=== PATIENT | male | born 1985 | race Caucasian/White ===

== ENCOUNTER 2024-09-19 10:01 | Emergency (ER) | payer MEDICAID, SELFPAY ==
[2024-09-19] VITALS (9 sets, daily range): BP systolic 115–143; BP diastolic 65–100; PULSE 62–87; RESP 16–18; TEMP 36.7; O2SAT 97–100; BMI 23.7
--- NOTE | 2024-09-19 10:41 | CT_ITS ---
FINAL REPORT TECHNIQUE: Axial CT images were performed through the head. Coronal reformatted images were submitted. This study was performed with techniques to keep radiation doses as low as reasonably achievable (ALARA). Individualized dose reduction techniques using automated exposure control or adjustment of mA and/or kV according to the patient's size were employed. CLINICAL HISTORY: syncope COMPARISON: None FINDINGS: The ventricles are normal in size. There is no evidence of hemorrhage. There is no mass or edema identified. There is no abnormal extra-axial fluid seen. Retention cyst or polyp is noted in the inferior right maxillary sinus. IMPRESSION: No acute intracranial process. Reviewed, Interpreted and Dictated by Pacheco Martin MD Transcribed by Nicky Moeller Authenticated and [facility]
--- NOTE | 2024-09-19 10:41 | CT_ITS ---
FINAL REPORT TECHNIQUE: thin section axial CT with and without IV contrast supplemented with multiplanar 3-D reconstruction of the head. This study was performed with techniques to keep radiation doses as low as reasonably achievable, (ALARA)individualized dose reduction techniques using automated exposure control or adjustment of mA and/or kV according to the patient's size were employed. CLINICAL HISTORY: syncope COMPARISON: None FINDINGS: CTA: The cranial circulation is unremarkable. There is no significant stenosis, aneurysm or occlusion. IMPRESSION: No acute process. Reviewed, Interpreted and Dictated by Pacheco Martin MD Transcribed by Nicky Moeller Authenticated and [facility]
--- NOTE | 2024-09-19 10:41 | CT_ITS ---
FINAL REPORT TECHNIQUE: The patient was injected with IV contrast. Axial images were obtained through the chest in a PE protocol. 3-D reconstruction images were also performed. Individualized dose reduction techniques using automated exposure control or adjustment of the MA and/or KV according to patient's size were employed. CLINICAL HISTORY: syncope COMPARISON: None FINDINGS: Mediastinal vasculature is adequately opacified. No pulmonary artery filling defects are identified to suggest PE. There is no aortic dissection. There is no axillary adenopathy. There is no hilar or mediastinal adenopathy. The heart size is normal. There is no pericardial or pleural effusion. Limited images of the upper abdomen are unremarkable. No suspicious infiltrate or nodule is identified. Dependent edema is noted at the lung bases. IMPRESSION: No pulmonary embolus or dissection. Reviewed, Interpreted and Dictated by Pacheco Martin MD Transcribed by Nicky Moeller Authenticated and [facility]
--- NOTE | 2024-09-19 10:41 | CT_ITS ---
FINAL REPORT TECHNIQUE: NASCET technique utilized for stenosis evaluation. CLINICAL HISTORY: syncope COMPARISON: None FINDINGS: RIGHT CAROTID: No significant stenosis is seen of the cervical common or internal carotid artery. LEFT CAROTID: No significant stenosis seen of the cervical common or internal carotid artery. VERTEBRALS: The vertebral arteries are symmetric and patent. No significant stenosis is present. IMPRESSION: No significant arterial abnormality. Reviewed, Interpreted and Dictated by Pacheco Martin MD Transcribed by Nicky Moeller Authenticated and [facility]
--- NOTE | 2024-09-19 10:43 | PC.NURSE ---
FS 109
--- NOTE | 2024-09-19 10:46 | ED_ITS ---
Discharge Plan Disposition Patient Disposition: Home, Self-Care Condition: Good Referrals Follow up/Referrals: Ceferino Metzger MD [Staff Physician] - See instructions Provider,MD Bradley [Primary Care Provider] - See instructions Danyel Sylvester MD [Staff Physician] - See instructions Activity Restrictions/Add. Instructions Additional Instructions/Restrictions: You were evaluated in the emergency department today. At this time, your labs and workup are reassuring. Please wear your Holter monitor as instructed. Follow-up with cardiology for results of this. I also recommend close follow-up with your primary care provider. Make sure you eat a well-balanced diet. Return to the emergency department for new or worsening symptoms. Clinical Impressions Clinical Impression: Syncope Stand Alone Forms Stand Alone Forms: Work/School Release Instructions Patient Instructions: DI for Syncope in Adults (Fainting) Print Language Print Language: Slovenian Discharge ED Provider: Gosia Villanueva General Adult HPI General Chief complaint: Seizure Stated complaint: poss seizure Time Seen by Provider: 09/19/24 10:30 Mode of Arrival: Wheelchair Source of Information: Patient Limitations: No Limitations Description of Symptoms (Recalled from ER Triage Doc. by RN): pt presents to ED with possible seziure activity. pt was ex at [facility]. ortho staff state that pt was sitting in chair playing with son, began to start shaking, profuse sweating. pt reports he last remembers playing with his son, and then waking up to people staring at him asking him questions. no hx of seizures. History of Present Illness HPI narrative: This patient is a 38-year-old male who denies significant past medical history presenting to the emergency department for evaluation with concern for syncope. Patient reports that he was at orthopedics appointment with his child and ex playing with the child when he lost consciousness. According to the patient's ex-, he was completely with it, talking, when suddenly he tossed his head back and began snoring. This lasted maybe 45 seconds. She notes that he was very diaphoretic. She denies noting any convulsions such as seizure, and she states that he came to very quickly afterward with no postictal period. He denies any tongue biting, loss of bladder or bowel function, or other concerns. He states that he had been feeling a little bit lightheaded this morning, which he attributed to not eating. Right now, he states he feels hungry but otherwise feels fine. No recent illnesses. He denies any history of alcohol or substance use. No history of seizure cardiac issues. He has had no headache, vision changes, numbness, tingling, unilateral weakness, chest pain, shortness of breath, abdominal pain, back pain, or other concerns. Related Data Allergies Allergy/AdvReac Type Severity Reaction Status Date / Time No Known Allergies Allergy Verified 09/19/24 10:26 [facility] Disclaimer: The information contained in this section may have been updated after the patient was seen, as this information can be updated by other users. Social History Smoking Status: Current every day smoker alcohol intake: never current occupational status: employed Travel in the last 8 weeks: None ROS Obtained: Yes All systems reviewed & no additional complaints except as documented Physical Exam General General appearance: alert and in no apparent distress Head Head exam: atraumatic and normocephalic Eye Eye exam: Present normal appearance, PERRL and EOMI ENT ENT exam: Present normal exam, normal oropharynx, mucous membranes moist and normal external ear exam Neck Neck exam: Present normal inspection, full ROM and trachea midline; Absent tenderness Chest Chest inspection: Present normal inspection and symmetric chest wall rise; Absent tenderness Respiratory Respiratory exam: Present normal lung sounds bilaterally; Absent respiratory distress, wheezes, stridor or accessory muscle use Cardiovascular Cardiovascular exam: Present regular rate and normal rhythm Abdominal Exam Abdominal exam: Present soft; Absent distention, tenderness or guarding Extremities Exam Extremities exam: Present normal inspection, full ROM and normal capillary refill; Absent tenderness or edema Back Exam Back exam: Present normal inspection and full ROM; Absent tenderness Neurological Exam Neurological exam: Present alert, oriented X3, CN II-XII intact and normal gait; Absent motor sensory deficit Psychiatric Psychiatric exam: Present normal affect and normal mood Skin Skin exam: Present warm and dry Medical Decision Making Medical Records Medical records reviewed: Yes I reviewed the patient's medical records. Screening: Per USPSTF and CDC recommendations, given the prevalence of disease in our region, it is our hospital?s policy to screen for HIV and viral Hepatitis for all patients aged 18 and over and those with ongoing risk factors. Rd Inquiry Pt receiving controlled substance: No Vital Signs: 09/19/24 10:02 09/19/24 10:30 09/19/24 11:10 Temperature 98.1 F Temperature Source Oral Pulse Rate 62 81 Pulse Rate [Left Radial] 65 Pulse Rate [Orthostatic Lying] Pulse Rate [Orthostatic Sitting] Pulse Rate [Orthostatic Standing] Respiratory Rate 16 Blood Pressure 140/94 H 138/89 Blood Pressure [Orthostatic Lying] Blood Pressure [Orthostatic Sitting] Blood Pressure [Orthostatic Standing] Blood Pressure [Right Arm] 135/100 H Blood Pressure Mean Blood Pressure Mean [Right Arm] 111 02 Sat by Pulse Oximetry 100 100 99 Oxygen Delivery Method Room Air Room Air Room Air 09/19/24 11:11 09/19/24 11:13 09/19/24 11:14 Temperature Temperature Source Pulse Rate 69 81 72 Pulse Rate [Left Radial] Pulse Rate [Orthostatic Lying] Pulse Rate [Orthostatic Sitting] Pulse Rate [Orthostatic Standing] Respiratory Rate Blood Pressure 143/95 H 124/74 Blood Pressure [Orthostatic Lying] Blood Pressure [Orthostatic Sitting] Blood Pressure [Orthostatic Standing] Blood Pressure [Right Arm] Blood Pressure Mean Blood Pressure Mean [Right Arm] 02 Sat by Pulse Oximetry 98 97 98 Oxygen Delivery Method Room Air 09/19/24 11:15 09/19/24 11:31 09/19/24 12:40 Temperature 98.1 F Temperature Source Pulse Rate 87 Pulse Rate [Left Radial] Pulse Rate [Orthostatic Lying] 68 Pulse Rate [Orthostatic Sitting] 73 Pulse Rate [Orthostatic Standing] 75 Respiratory Rate 18 Blood Pressure 115/69 115/65 Blood Pressure [Orthostatic Lying] 138/89 Blood Pressure [Orthostatic Sitting] 143/95 H Blood Pressure [Orthostatic Standing] 124/74 Blood Pressure [Right Arm] Blood Pressure Mean 84 Blood Pressure Mean [Right Arm] 02 Sat by Pulse Oximetry Oxygen Delivery Method Room Air Lab Data Lab results reviewed: Yes I reviewed the patient's lab results. Lab Results 09/19/24 10:14: WBC 10.2, RBC 5.21, Hgb 15.9, Hct 47.0, MCV 90.2, MCH 30.5, MCHC 33.8, RDW 12.4, Plt Count 298, MPV 9.6, Neut % (Auto) 40.7, Lymph % (Auto) 46.4, [place] % (Auto) 8.8, Eos % (Auto) 3.0, Baso % (Auto) 0.9, Neut # (Auto) 4.2, Lymph # (Auto) 4.7 H, Troup # (Auto) 0.9, Eos # (Auto) 0.3, Baso # (Auto) 0.1, Sodium 138, Potassium 4.9, Chloride 103, Carbon Dioxide 28, Anion Gap 11.9, BUN 16, Creatinine 0.90, Estimated Creat Clear 125, Estimated GFR 94, Est GFR ( Amer) 114, Glucose 123 H, Calcium 9.1, Magnesium 2.0, Total Bilirubin 0.4, AST 32, ALT 22, Alkaline Phosphatase 72, Troponin I < 0.01, Total Protein 7.3, Albumin 4.7, Globulin 2.6, Albumin/Globulin Ratio 1.8, TSH 1.23, Thyroxine (T4) 8.8, Plasma/Serum Alcohol < 10 09/19/24 11:35: Urine Color Yellow, Urine Appearance Clear, Urine pH 7.0, Ur Specific Fosters 1.010, Urine Protein Negative, Urine Glucose (UA) Negative, Urine Ketones Negative, Urine Blood Negative, Urine Nitrate Negative, Urine Bilirubin Negative, Urine Urobilinogen 0.2, Ur Leukocyte Esterase Negative, Urine RBC None, Urine WBC None, Ur Squamous Epith Cells None, Urine Bacteria Trace, Urine Opiates Screen Negative, Urine Methadone Screen Negative, Ur Barbituates Screen Negative, Ur Phencyclidine Scrn Negative, Ur Amphetamines Screen Negative, U Benzodiazepines Scrn Negative, Urine Cocaine Screen Negative, U Marijuana (THC) Screen Positive H 09/19/24 10:14 09/19/24 10:14 Orders (Tests/Meds): ED MEDICATIONS Discontinued Medications Generic Name Dose Route Start Last Admin Trade Name Vinod PRN Reason Stop Dose Admin Iopamidol 165 ml 09/19/24 10:57 09/19/24 10:59 Iopamidol-370 (76%);100ml Bottle IV 09/19/24 10:58 165 ml ONCE ONE Administration Sodium Chloride 10 ml 09/19/24 10:57 09/19/24 10:59 Sodium Chloride 0.9% 10ml Syr (Rad Only) IV 09/19/24 10:58 10 ml ONCE ONE Administration Sodium Chloride 50 ml 09/19/24 10:57 09/19/24 10:59 0.9 % Sodium Chloride 50 Ml Vial IV 09/19/24 10:58 50 ml ONCE ONE Administration ORDERS Category Date Time Status CT angio chest PE protocol Stat Cat Scan 09/19/24 10:[address] angio head Stat Cat Scan 09/19/24 10:[address] angio neck Stat Cat Scan 09/19/24 10:[address] head/brain wo con Stat Cat Scan 09/19/24 10:41 Completed CBC w/Auto Diff [Complete Blood Count Auto Diff] Stat Lab 09/19/24 10:14 Completed CMP [Comprehensive Metabolic Panel] Stat Lab 09/19/24 10:14 Completed Ethyl Alcohol Stat Lab 09/19/24 10:14 Completed MAG [Magnesium] Stat Lab 09/19/24 10:14 Completed T4 (Thyroxine) Stat Lab 09/19/24 10:14 Completed TSH [Thyroid Stimulating Hormone] Stat Lab 09/19/24 10:14 Completed Trop I [Troponin I] Stat Lab 09/19/24 10:14 Completed UA [Urinalysis and Microscopic] Stat Lab 09/19/24 11:35 Completed UDS [Drug Screen,Urine] Stat Lab 09/19/24 11:35 Completed ECG holter initial pfn Stat Y 09/19/24 12:07 Completed ECG Data Tracing #1: I reviewed this ECG and interpreted as documented below: Normal sinus rhythm with a ventricular of [address] changes concerning for ischemia. Normal axis and intervals. ECG initial impression date: 09/19/24 ECG initial impression time: 10:58 Medical Decision Narrative: In summary, this patient is a 38-year-old male presenting to the Emergency Department for evaluation of sudden loss of consciousness. Differential diagnoses considered include but are not limited to syncope, electrolyte derangement, dysrhythmia, PE, CVA, intracranial vascular abnormality, ACS, seizure. Ruling out the most morbid conditions drove assessment. On exam, the patient is very well-appearing and denies any physical concerns or complaints at this time. Blood glucose normal upon arrival. Based on history and explanation of symptoms, I doubt seizure and suspect this was more likely a syncopal episode. He has no significant cardiac risk factors noted, no history of drug or alcohol abuse. No headache or neurologic symptoms, and he is completely neurologically intact on exam. Vitals are normal on cardiac telemetry. Workup included lab evaluation to evaluate for metabolic/cardiac etiologies as well as CT head, CT angiogram head and neck, and CT angiogram PE protocol. Given patient is asymptomatic now, no interventions given at this time. I independently interpreted CT scans prior to the radiologist read and noted no acute intracranial bleed or space occupying lesions. No PE. Please see their read for final interpretation. They noted no acute findings on scan. Labs were obtained that demonstrated reassuring CBC, reassuring chemistry, negative troponin, urinalysis this reassuring with a section of UDS positive for THC.. On multiple subsequent reassessments, the patient is resting comfortably with no concerns or complaints and is neurologically intact with reassuring vitals on cardiac telemetry. No new symptoms developed. Overall, I feel this likely was not a seizure, I feel it was likely syncope. Given this, I did order a Holter monitor for the patient to wear and advise that he follow-up with cardiology for interpretation of this. He has breast understanding and agreement. This was provided. I did this because it is concerning to me that he had syncope while sitting mid conversation with no obvious notable inciting factors. Overall, I feel the patient is appropriate for discharge home with strict return precautions and instructions for close follow-up. Patient was discharged after all questions were answered. Critical Care Critical Care Time Critical Care Time: No
--- NOTE | 2024-09-19 10:53 | ECG_ITS ---
APPROVED REPORT Exam: Resting ECG HR:66 bpm ECG Measurements Heart Rate 66 AXES HI 202 P 80 QRSd 97 QRS 67 QT 391 T 67 QTc 404 Conclusion SINUS RHYTHM NORMAL ECG Electronically signed by : GWENDOLYN SALAZAR, 09/19/2024 16:00:40
[2024-09-19 10:58] LABS: Basophils # 0.1 K/mm3 (0-0.2); Basophils % 0.9 % (0.1-2.0); Eosinophils # 0.3 K/mm3 (0.0-0.4); Hemoglobin 15.9 g/dL (14.1-18.0); Lymphocytes # 4.7 K/mm3 (0.7-4.5); Lymphocytes % 46.4 % (10-50); Mean Corpuscular HGB Conc 33.8 g/dL (31.8-35.4); Mean Corpuscular Hemoglobin 30.5 pg (27.0-31.2); Mean Corpuscular Volume 90.2 fl (80-94); Mean Platelet Volume 9.6 fl (7.4-10.4); Monocytes # 0.9 K/mm3 (0.1-1.0); Monocytes % 8.8 % (1.7-9.3); Neutrophils # 4.2 K/mm3 (1.8-7.8); Neutrophils % 40.7 % (37.0-80.0); Platelet Count 298 K/mm3 (142-424); Red Blood Count 5.21 M/mm3 (4.60-6.20); Red Cell Distribution Width 12.4 % (11.5-17.5); White Blood Count 10.2 K/mm3 (4.8-10.8)
[2024-09-19] MEDS: 0.9 % SODIUM CHLORIDE 50 ML VIAL IV (10:59)
[2024-09-19] MEDS: SODIUM CHLORIDE 0.9% 10ML SYR (RAD ONLY) 10 ML IV (10:59)
[2024-09-19] MEDS: IOPAMIDOL-370 (76%);100ML BOTTLE 165 ML IV (10:59)
[2024-09-19 11:03] LABS: Alanine Aminotransferase 22 U/L (12-78); Albumin Level 4.7 g/dl (3.5-5.0); Albumin/Globulin Ratio 1.8 (1.1-1.8); Alkaline Phosphatase 72 U/L (38-126); Anion Gap 11.9 mEq/L (5-15); Aspartate Amino Transferase 32 U/L (17-59); Bilirubin,Total 0.4 mg/dl (0.2-1.3); Blood Urea Nitrogen 16 mg/dl (9-20); Calcium 9.1 mg/dl (8.4-10.2); Carbon Dioxide 28 mmol/L (22.0-30.0); Chloride 103 mmol/L (98-107); Creatinine Clearance Estimated 125 mL/min (50-200); Estimated Glomerular Filt Rate 94 ml/min (>60); GFR (African American) 114 ML/MIN (>60); Globulin 2.6 g/dL (1.3-3.2); Glucose 123 mg/dl (74-100); Potassium 4.9 mmoL/L (3.5-5.1); Sodium 138 mmol/L (136-145); Total Protein,Serum 7.3 g/dl (6.3-8.2)
[2024-09-19 11:20] LABS: T4 (Thyroxine) 8.8 ug/dl (5.53-11.0)
[2024-09-19 11:26] LABS: Troponin I < 0.01 ng/ml (0.00-0.034)
[2024-09-19 11:33] LABS: Thyroid Stimulating Hormone 1.23 uIU/mL (0.465-4.68)
[2024-09-19 11:45] LABS: Microscopic, Urine URINE MICROSCOPIC (MICROSCOPIC)
[2024-09-19 11:51] LABS: Appearance,Urine CLEAR (Clear); Bilirubin,Urine Negative (Negative); Blood, Urine Negative (Negative); Color,Urine YELLOW (Yellow); Glucose,Urine (UA) Negative (Negative); Ketones,Urine Negative (Negative); Leukocyte Esterase,Urine Negative (Negative); Nitrate,Urine Negative (Negative); Protein,Urine Negative (Negative); Urobilinogen,Urine 0.2 EU/dl (0.2)
[2024-09-19 11:55] LABS: Ethyl Alcohol < 10 mg/dl (0-10)
[2024-09-19 12:00] LABS: Barbiturates Screen,Urine Negative ng/ml (<200)
[2024-09-19 12:01] LABS: Benzodiazepines Screen,Urine Negative ng/ml (<200)
[2024-09-19 12:02] LABS: Amphetamine/Metha Screen,Urine Negative ng/ml (<1000); Methadone Screen,Urine Negative ng/ml (<300)
[2024-09-19 12:03] LABS: Cannabinoid Screen,Urine Positive ng/ml (<50)
[2024-09-19 12:04] LABS: Cocaine Screen,Urine Negative ng/ml (<300); Opiate Screen,Urine Negative ng/ml (<300)
[2024-09-19 12:05] LABS: Phencyclidine Screen,Urine Negative ng/ml (<25)
--- NOTE | 2024-09-19 12:07 | PC.NURSE ---
RESPIRATORY NOTIFIED OF HOLTER MONITOR ORDER
--- NOTE | 2024-09-19 12:32 | PC.NURSE ---
DR SALAZAR AT BEDSIDE TO UPDATE PT AND FAMILY
[2024-09-19 12:40] LABS: Bacteria,Urine Trace /lpf
== END 2024-09-19 12:41 | disposition home or self-care (01) ==
PROVIDERS: Emergency Provider Emergency Medicine
DX: R55 Syncope and collapse (principal); R56.9 Unspecified convulsions; R61 Generalized hyperhidrosis; R42 Dizziness and giddiness
CPT/HCPCS: 70450; 70496; 70498; 71275; 80053; 80307; 80320; 81001; 83735; 84436; 84443; 84484; 85025; 93005; 93225; 93227; 99285; G0480; Q9967